=== PATIENT | female | born 1960 | race Two or more races ===

== ENCOUNTER 2016-11-14 11:05 | Emergency (ER) | payer MEDICAID ==
[~2016-11-14] VITALS: Ht 157.5 cm; Wt 77.1 kg
[2016-11-14 11:40] VITALS: BP 126/75
[2016-11-14] MEDS ORDERED: Acetaminophen 500mg (ES) tab PO ONE (12:15)
[2016-11-14] MEDS ORDERED: Bacitracin Oint UD TOPIC ONE (12:15)
[2016-11-14] MEDS ORDERED: TdaP Vaccine 0.5ml Syr IM ONE (12:15)
[2016-11-14] MEDS ORDERED: IBUPROFEN600 MG ORAL (14:49)
[2016-11-14] MEDS ORDERED: TRAMADOL HCL50 MG ORAL (14:49)
[2016-11-14 15:00] VITALS: BP 122/71
[2016-11-14 15:05] VITALS: BP 122/71
--- NOTE | 2016-11-14 21:27 | Emergency Room Report ---
History of Present Illness General Chief Complaint: Multiple Trauma/Fall Source: Patient Present Illness HPI A chair she was using to reach something gave way and she fell onto concrete hitting her R side and R head. No LOC, but she saw lights and was disoriented after. No NVD. Pain in head, R chest and R knee. Abrasions R knee. Tet > 10 years. No back pain. Min neck pain. Employer gave 2 aleve. Pain 5/10, some radiation to shoulder, aching and TTP. No major medical problems. No fevers, dyspnea, URI sy, change in bowels. 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 Reviewed Nursing Documentation: PMH: Agreed, PSxH: Agreed Nursing Documentation-PMH Past Medical History: No Stated History Review of Systems All Other Systems: negative except mentioned in HPI Physical Exam Vital Signs Date Time Temp Pulse Resp B/P Pulse Ox O2 Delivery O2 Flow Rate FiO2 11/14/16 11:19 98.2 67 18 126/75 95 Room Air Sp02 EP Interpretation: reviewed, normal General Appearance: well appearing, no apparent distress, GCS 15 Head: normocephalic, other - R scalp tenderness Eyes: bilateral eye EOMI, bilateral eye PERRL, bilateral eye normal inspection ENT: moist mucus membranes Neck: full range of motion, supple, no bony tend Respiratory: lungs clear, normal breath sounds, other - chest tender R side without referred pain or crepetance Cardiovascular #1: regular rate, rhythm Cardiovascular #2: 2+ radial (R), 2+ dorsalis pedis (R) Gastrointestinal: normal inspection, normal bowel sounds, non tender, no mass, non-distended Musculoskeletal: back normal, gait/station normal - with limp R, normal range of motion, pelvis stable, other - knee ligaments stable, no ankle pain Neurologic: alert, oriented x3, manager of health III-XII nml as tested, motor strength/tone normal, DTRs symmetric, sensory intact, cerebellar normal, speech normal Psychiatric: anxious Skin: warm/dry, abrasions - R knee Medical Decision Making Diagnostic Impression: Primary Impression: Multiple injuries due to trauma Additional Impressions: Head injury Chest and knee contusions ER Course Patient evaluated post fall. DDx: contusions, concussion, abrasions, fx. CT, chest and knee films indicated. Analgesics ordered here. CT, CXR and knee films negative. Paient improved. Aamir and sling applied. Position and tension good with improvement. Neurovasc normal checked by me. Stable for outpatient observation and treatment. Chest X-Ray Diagnostic Results EP Interpretation: Yes Findings: no consolidation, no effusion, no pneumothorax, no acute cardiopulmonary disease Number of Views: 1 Other X-Ray Diagnostic Results Other X-Ray Diagnostic Results : X-Ray Ordered: R knee EP Interpretation: Yes Findings: no fractures, no dislocation, no soft tissue swelling Number of Views: 3 CT/MRI/US Diagnostic Results CT/MRI/US Diagnostic Results : Imaging Test Ordered: head Impression no bones, brain and ST Last Vital Signs Date Time Temp Pulse Resp B/P Pulse Ox O2 Delivery O2 Flow Rate FiO2 11/14/16 15:05 98.2 65 16 122/71 95 Room Air Status: improved Disposition: HOME, SELF-CARE Condition: Improved Scripts Ibuprofen* (MOTRIN*) 600 Mg Tablet 600 MG ORAL Q6H Y for For Pain, #20 TAB Prov: Silas Ybarra M.D. 11/14/16 Tramadol Hcl* (ULTRAM*) 50 Mg Tablet 50 MG ORAL Q6H Y for For Pain, #14 TAB 0 Refills Prov: Silas Ybarra M.D. 11/14/16 Departure Forms: Return to Work Return to Work in (Days): 3 Return to Work Date: Nov 17, 2016 Patient Instructions: Head Injury, Adult, Contusion, RICE for Routine Care of Injuries Additional Instructions: Xander a renee doctor man~althea. Puede david tylenol. Que alguien le despierte kinza vez esta noche. Silas Ybarra M.D. Nov 14, 2016 21:27
--- NOTE | 2016-11-15 11:50 | Diagnostic Imaging Report ---
Indication: Head trauma Technique: Contiguous 5 mm thick transaxial imaging of the head obtained in a Siemens Sensation [address] scanner. Soft tissue and bone windows generated. Total Dose length Product (DLP): [address] Dose Index Volume (CTDIvol): 70.38 mGy Comparison: none Findings: The size and configuration of the cortical sulci, basal cisterns, and ventricles are within normal limits for age. There is no mass effect, midline shift, or edema identified. There is no evidence of acute hemorrhage or abnormal intra-axial or extra-axial fluid collections. The bones and soft tissues are unremarkable. Impression: No mass effect, edema or acute bleed. The CT scanner at [facility] is accredited by the [employer] and the scans are performed using protocols designed to limit radiation exposure to as low as reasonably achievable to attain images of sufficient resolution adequate for diagnostic evaluation.
--- NOTE | 2016-11-15 13:16 | Diagnostic Imaging Report ---
Indication: Pain 3 views of the right knee were obtained. Findings: No acute fracture, malalignment, or joint effusion are identified. Joint space is relatively well-maintained. Bone mineralization is within normal limits for age. Impression: Negative exam
--- NOTE | 2016-11-15 13:16 | Diagnostic Imaging Report ---
Indication: Dyspnea Comparison: None 2 views of the chest obtained. No definite infiltrate or pulmonary vascular congestion identified. The heart is normal in size. The aorta is mildly enlarged consistent with atherosclerotic vascular disease. The bones are osteopenic. Impression: No acute disease
== END 2016-11-14 15:05 | disposition home or self-care (01) ==
LOC: EMR 11:56
DX: S09.90XA Unspecified injury of head, initial encounter (principal); S20.219A Contusion of unspecified front wall of thorax, initial encounter; S80.01XA Contusion of right knee, initial encounter; Z23 Encounter for immunization; W07.XXXA Fall from chair, initial encounter; Y92.9 Unspecified place or not applicable; Y99.0 Civilian activity done for income or pay
CPT/HCPCS: 70450; 71020; 90471; 90715; 99284